=== PATIENT | male | born 1975 | race Caucasian/White ===

== ENCOUNTER 2017-08-20 20:20 | Emergency (ER) | payer BC ==
[2017-08-20 20:42] VITALS: BP 174/99; PULSE 68; RESP 18; TEMP 98.3; O2SAT 99
[2017-08-20] MEDS ORDERED: PROPARACAINE/FLUORESCEIN SOD 100 DROP/5 ML BOTTLE OS STA (21:55)
--- NOTE | 2017-08-20 22:16 | ED PDOC ---
HPI: Eye Injury/Pain Time Seen by Provider: 08/20/17 21:47 Chief Complaint (Nursing): Eye Problem Chief Complaint (Provider): Left Eye Problem History Per: Patient History/Exam Limitations: no limitations Onset/Duration Of Symptoms: Days (08/20/17) Current Symptoms Are (Timing): Still Present Quality: "Pain" Associated Symptoms: Discharge From Eye. denies: Decreased Vision Additional Complaint(s): 42 year old male presents to the ED complaining of debris falling into his left eye. States he was moving boxes earlier and felt something in his eye. Reports of irritation and pain. Denies visual changes, wearing contacts or history of diabetes. PMD: No Family Provider Past Medical History Reviewed: Historical Data, Nursing Documentation, Vital Signs Vital Signs: Last Vital Signs Temp 98.3 F 08/20/17 20:40 Pulse 68 08/20/17 20:40 Resp 18 08/20/17 20:40 BP 174/99 H 08/20/17 20:40 Pulse Ox 99 08/20/17 20:40 - Medical History PMH: No Chronic Diseases Denies: Diabetes - Surgical History Surgical History: No Surg Hx - Family History Family History: States: Unknown Family Hx - Home Medications Home Medications: Ambulatory Orders Medication Instructions Recorded Erythromycin 0.5% [Erythromycin 1 appl LEFTEYE QID #1 tube 08/20/17 0.5% Oint] - Allergies Allergies/Adverse Reactions: Allergies Allergy/AdvReac Type Severity Reaction Status Date / Time No Known Allergies Allergy Verified 08/20/17 20:40 Review of Systems ROS Statement: Except As Marked, All Systems Reviewed And Found Negative Eyes: Positive for: Pain (left), Redness. Negative for: Vision Change Psych: Negative for: Suicidal ideation (homicidal ideation) Physical Exam - Reviewed Nursing Documentation Reviewed: Yes Vital Signs Reviewed: Yes - Physical Exam Appears: Positive for: Well, Non-toxic, No Acute Distress Head Exam: Positive for: ATRAUMATIC, NORMAL INSPECTION, NORMOCEPHALIC Skin: Positive for: Normal Color, Warm, Dry Eye Exam: Positive for: EOMI, PERRL, Conjunctival injection (left eye, minimal) . Negative for: Periorbital swelling, Periorbital tenderness, Other (hyphema) Neurologic/Psych: Positive for: Alert, Oriented (x3). Negative for: Motor/ Sensory Deficits - ECG O2 Sat by Pulse Oximetry: 99 (RA) Pulse Ox Interpretation: Normal Medical Decision Making Medical Decision Making: Time: 2154 Initial Plan: --Flucaine Eye Drops Small white foreign body removed from the inner R upper eyelid with q-tip. Reports moderate pain relief. Vitaly lens used with further pain improvement and reports FB sensation is still present but does not want any more attempts to be made to remove it. States he will f/u with his front end assistant for further evaluation. No fluoroscein uptake after removal of FB in R cornea. Scribe Attestation: Documented by Larisa Martinez, acting as a scribe for Job Rosa PA-C Provider Scribe Attestation: All medical record entries made by the Scribe were at my direction and personally dictated by me. I have reviewed the chart and agree that the record accurately reflects my personal performance of the history, physical exam, medical decision making, and the department course for this patient. I have also personally directed, reviewed, and agree with the discharge instructions and disposition. Disposition - Clinical Impression Clinical Impression: Foreign body in eye - Patient ED Disposition Is Patient to be Admitted: No - Disposition Referrals: Angie Wei [Outside] Amanuel Sawyer MD [Staff Provider] - Disposition: Routine/Home Disposition Time: 23:49 Condition: IMPROVED Additional Instructions: Follow up with Dr. Sawyer for further evaluation Return to ED immediately if symptoms worsen Prescriptions: Erythromycin 0.5% [Erythromycin 0.5% Oint] 1 appl LEFTEYE QID #1 tube Instructions: Foreign Body in Eye (DC) Forms: [employer] ([place]) Print Language: [place]
== END 2017-08-20 23:53 | disposition home or self-care (01) ==
LOC: H.ER 20:20
DX: T15.81XA Foreign body in other and multiple parts of external eye, right eye, initial encounter (principal)